=== PATIENT | female | born 1935 | race Caucasian/White ===

== ENCOUNTER → 2018-02-26 | Outpatient (CLI) | payer MEDICARE ==
[~2018-02-26] MED LIST: ATORVASTATIN CA20 MG PO; DEPAKOTE ER500 MG PO; PROLIA60 MG/1 ML; XANAX0.25 MG PO; XANAX1 MG PO
--- NOTE | 2018-02-26 16:04 | Diagnostic Imaging Report ---
History:Fall, posterior head pain Comparison studies:CT head 06/12/2014 Technique: Axial images were obtained from the skull base to the vertex. Coronal and sagittal images reconstructed from the axial data. Intravenous contrast: None Dose modulation, iterative reconstruction, and/or weight based adjustment of the mA/kV was utilized to reduce the radiation dose to as low as reasonably achievable. Findings: Scalp/skull: No abnormalities. Extra-axial spaces: No masses. No fluid collections. Brain sulci: Mildly prominent. Ventricles: Mild compensatory dilatation. No hydrocephalus. Parenchyma: Scattered small hypodensities in the supratentorial white matter are small vessel ischemic changes. No masses, hemorrhage, acute or chronic cortical vascular insults. Sellar/suprasellar region: No abnormalities. Craniocervical junction: Patent foramen magnum. No Chiari one malformation. Incidental findings: Atherosclerotic calcifications in the carotid siphons . Impression: No acute abnormalities. Chronic findings: 1. Mild generalized volume loss. 2. Mild supratentorial white matter small vessel ischemic changes. Signed by: DR Tree Bautista M.D. on 02/26/2018 4:00 PM
== END ==
LOC: CT 15:06
PROVIDERS: ATTEND Psychiatry & Neurology Clinical Neurophysiology
DX: I60.9 Nontraumatic subarachnoid hemorrhage, unspecified (principal)
CPT/HCPCS: 70450

== ENCOUNTER → 2018-03-20 | Outpatient (RCR) | payer MEDICARE | LOC: PT 03-12 15:38 | PROVIDERS: ATTEND Psychiatry & Neurology Clinical Neurophysiology | DX: R26.9 Unspecified abnormalities of gait and mobility (principal) ==

== ENCOUNTER 2018-04-07 09:59 | Outpatient (RCR) | payer MEDICARE | END 2018-04-17 | LOC: PT 09:59 | PROVIDERS: ATTEND Psychiatry & Neurology Clinical Neurophysiology | DX: R26.9 Unspecified abnormalities of gait and mobility (principal) | CPT/HCPCS: 97139 ==

== ENCOUNTER 2020-11-17 23:00 | Emergency (ER) | payer MEDICARE ==
[~2020-11-17] VITALS: Ht 160 cm; Wt 58.1 kg
[2020-11-17 23:33] LABS: BASOPHILS % 0.7 % (0.0-1.0); EOSINOPHILS # (AUTO) 0.1 (0.0-0.4); EOSINOPHILS % 1.3 % (0.0-6.0); HEMATOCRIT 40.3 % (34.2-44.1); HEMOGLOBIN 13.1 g/dL (12.0-16.0); LYMPHOCYTES # (AUTO) 2.5 (1.0-3.2); LYMPHOCYTES % 42.3 % (18.0-39.1); MEAN CORPUSCULAR HEMOGLOBIN 31.3 pg (28-32); MEAN CORPUSCULAR HGB CONC 32.5 g/dL (31-35); MEAN CORPUSCULAR VOLUME 96.2 fL (81-99); MONOCYTES # (AUTO) 0.6 (0.2-0.8); NEUTROPHILS # (AUTO) 2.7 (2.1-6.9); NEUTROPHILS % 45.4 % (38.7-80.0); PLATELET COUNT 213 x10e3/uL (140-360); RED BLOOD COUNT 4.19 x10e6/uL (3.6-5.1); RED CELL DISTRIBUTION WIDTH 12.4 % (11.7-14.4)
[2020-11-17 23:47] LABS: ALBUMIN 4.3 g/dL (3.5-5.0); ALBUMIN/GLOBULIN RATIO 1.5 (0.8-2.0); ANION GAP 15.5 mmol/L (8-16); CALCIUM 9.7 mg/dL (8.4-10.2); CREATININE, SERUM 0.79 mg/dL (0.57-1.11); POTASSIUM 4.5 mmol/L (3.5-5.1)
[2020-11-17 23:53] LABS: CREATINE KINASE MB 1.4 ng/mL (0-5.0)
== END 2020-11-18 05:32 | disposition home or self-care (01) ==
LOC: ER 23:05
DX: R42 Dizziness and giddiness (principal); T44.7X5A Adverse effect of beta-adrenoreceptor antagonists, initial encounter; I48.91 Unspecified atrial fibrillation; F41.9 Anxiety disorder, unspecified; I34.1 Nonrheumatic mitral (valve) prolapse; Z95.810 Presence of automatic (implantable) cardiac defibrillator
CPT/HCPCS: 36415; 70450; 71045; 80053; 82550; 82553; 84484; 85025; 93005; 99284